=== PATIENT | female | born 1990 | race Caucasian/White ===

== ENCOUNTER 2017-10-26 13:56 | Emergency (ER) | payer OTHER ==
[~2017-10-26] VITALS: Ht 165.1 cm; Wt 95.3 kg
[2017-10-26] MEDS ORDERED: ESOM40CA PO (14:11)
[2017-10-26] MEDS ORDERED: ONDANSETRON 4 MG/2 ML VIAL ONE (14:15)
[2017-10-26] MEDS ORDERED: KETOROLAC TROMETHAMINE 15 MG INJ ONE (14:15)
[2017-10-26] MEDS: ONDANSETRON 4 MG/2 ML VIAL IV ONE (14:20)
[2017-10-26] MEDS: KETOROLAC TROMETHAMINE 15 MG INJ IV ONE (14:22)
[2017-10-26 14:26] LABS: BASOPHILS # (AUTO) 0.1 K/uL (0.0-8.0); BASOPHILS % (AUTO) 0.8 % (0.0-2.0); EOSINOPHILS % (AUTO) 0.6 % (0.0-7.0); HEMOGLOBIN 13.4 g/dL (10.9-14.3); LYMPHOCYTES # (AUTO) 1.6 K/uL (20.0-40.0); LYMPHOCYTES % (AUTO) 21.9 % (20.5-51.5); MEAN CORPUSCULAR HEMOGLOBIN 29.4 uug (24.7-32.8); MEAN CORPUSCULAR HGB CONC 34 g/dL (32.3-35.6); MEAN CORPUSCULAR VOLUME 85.4 fL (75.5-95.3); MONOCYTES # (AUTO) 0.5 K/uL (2.0-10.0); MONOCYTES % (AUTO) 6.9 % (0.0-11.0); NEUTROPHILS % (AUTO) 69.8 % (38.5-71.5); PLATELET COUNT (AUTO) 192 K/uL (179-408); RED BLOOD CELL COUNT(AUTO) 4.56 MIL/uL (3.63-4.92); WHITE BLOOD COUNT (AUTO) 7.1 K/uL (3.8-11.8)
[2017-10-26 14:39] LABS: CREATININE 0.7 mg/dL (0.6-1.3); POTASSIUM 3.3 mmol/L (3.5-5.1)
[2017-10-26 14:48] LABS: *BLOOD, URINE NEGATIVE (NEGATIVE); *KETONES,URINE 3+ (NEGATIVE); *PROTEIN,URINE 2+ (NEGATIVE); LEUKOCYTE ESTERASE ,URINE NEGATIVE (NEGATIVE); NITRITE, URINE NEGATIVE (NEGATIVE); UGLUCOSE NEGATIVE (NEGATIVE)
[2017-10-26 14:50] LABS: BILIRUBIN,DIRECT 0.3 mg/dL (0.0-0.2); BILIRUBIN,TOTAL 0.9 mg/dL (0.2-1.0); TOTAL PROTEIN, SERUM 7.1 g/dL (6.4-8.2)
[2017-10-26 14:56] LABS: *URINE HCG, QUAL NEGATIVE (NEGATIVE)
[2017-10-26 15:03] LABS: *CLARITY,URINE HAZY (CLEAR); *COLOR,URINE BROWN (YELLOW)
[2017-10-26 15:04] LABS: *BILIRUBIN,URIN 2+ (NEGATIVE)
[2017-10-26 15:07] LABS: BACTERIA,URINE MANY /HPF (NONE SEEN); RBC,URINE 0-3 /HPF (0-3); SQUAMOUS EPITHELIAL CELL,UR MODERATE /HPF (NONE SEEN)
[2017-10-26 15:08] LABS: MUCUS,URINE MANY /LPF (0-FEW)
--- NOTE | 2017-10-26 15:30 | NUR ---
IV removed. Catheter intact and site benign. Pressure and 4x4 gauze applied to site. No bleeding noted. Patient discharged to home in stable conditon & steadt gait. Written & verbal after care instructions and copies of all the tests' results given. Patient verbalizes understanding of instructions.
== END 2017-10-26 15:32 | disposition home or self-care (01) ==
LOC: ER 13:56
DX: K80.20 Calculus of gallbladder without cholecystitis without obstruction (principal); Z79.899 Other long term (current) drug therapy
CPT/HCPCS: 36415; 83690; 84703; 85025; A4663; J1885; J2405; J7030

== ENCOUNTER 2024-05-30 13:55 | Emergency (ER) | payer MEDICAID, OTHER ==
[~2024-05-30] VITALS: Ht 162.6 cm; Wt 57.2 kg
[~2024-05-30 13:55] MED LIST: ESOM40CA PO
[2024-05-30] MEDS ORDERED: HYDROMORPHONE 1 MG/1 ML DISP.SYRIN ONE (15:01)
[2024-05-30] MEDS ORDERED: ONDANSETRON 4 MG/2 ML VIAL ONE (15:01)
[2024-05-30] MEDS: ONDANSETRON 4 MG/2 ML VIAL IV ONE (15:15)
[2024-05-30] MEDS: IV NORMAL SALINE 1000 ML BAG IV ONE (15:15)
[2024-05-30] MEDS: HYDROMORPHONE 1 MG/1 ML DISP.SYRIN IV ONE (15:15)
[2024-05-30 15:16] LABS: BASOPHILS % (AUTO) 0.7 % (0.0-2.0); EOSINOPHILS # (AUTO) 0.1 K/uL (0.0-0.7); HEMATOCRIT 24.7 % (31.2-41.9); LYMPHOCYTES # (AUTO) 0.2 K/uL (0.8-4.8); MEAN CORPUSCULAR HEMOGLOBIN 18.2 uug (24.7-32.8); MEAN CORPUSCULAR HGB CONC 30 g/dL (32.3-35.6); MEAN CORPUSCULAR VOLUME 61.1 fL (75.5-95.3); MONOCYTES # (AUTO) 0.3 K/uL (0.1-1.30); MONOCYTES % (AUTO) 5.7 % (0.0-11.0); NEUTROPHILS # (AUTO) 4.7 K/uL (1.8-8.9); NEUTROPHILS % (AUTO) 87.6 % (38.5-71.5); PLATELET COUNT (AUTO) 280 K/uL (179-408); RED BLOOD CELL COUNT(AUTO) 4.04 MIL/uL (3.63-4.92); RED CELL DISTRIBUTION WIDTH 20.8 % (12.3-17.7); WHITE BLOOD COUNT (AUTO) 5.4 K/uL (3.8-11.8)
[2024-05-30 15:29] LABS: HEMOGLOBIN 7.4 g/dL (10.9-14.3)
[2024-05-30 15:32] LABS: ALANINE AMINOTRANSFERASE 9 U/L (14-59); ALBUMIN 3.1 g/dL (3.4-5.0); ALKALINE PHOSPHATASE 44 U/L (50-136); ASPARTATE AMINOTRANSFERASE < 5 U/L (15-37); BILIRUBIN,DIRECT 0.2 mg/dL (0.0-0.2); BILIRUBIN,TOTAL 0.5 mg/dL (0.2-1.0); CALCIUM 8.2 mg/dL (8.5-10.1); CARBON DIOXIDE 26 mmol/L (21-32); CHLORIDE 105 mmol/L (98-107); CREATININE 0.5 mg/dL (0.6-1.3); GLUCOSE 100 mg/dL (74-106); POTASSIUM 4.2 mmol/L (3.5-5.1); SODIUM SERUM 138 mmol/L (136-145); TOTAL PROTEIN, SERUM 6.5 g/dL (6.4-8.2); UREA NITROGEN, BLOOD 11 mg/dL (7-18)
[2024-05-30 16:37] LABS: IRON, SERUM 13 ug/dL (50-175)
[2024-05-30 16:50] LABS: *BILIRUBIN,URIN NEGATIVE (NEGATIVE); *BLOOD, URINE NEGATIVE (NEGATIVE); *CLARITY,URINE CLEAR (CLEAR); *COLOR,URINE YELLOW (YELLOW); *KETONES,URINE NEGATIVE (NEGATIVE); *PROTEIN,URINE NEGATIVE (NEGATIVE); *UROBILINOGEN,URINE 0.2 E.U./dl (NORMAL); LEUKOCYTE ESTERASE ,URINE NEGATIVE (NEGATIVE); NITRITE, URINE NEGATIVE (NEGATIVE); PH,URINE 8.5 (5.0-8.0); UGLUCOSE NEGATIVE (NEGATIVE)
[2024-05-30 16:53] LABS: *URINE HCG, QUAL NEGATIVE (NEGATIVE)
[2024-05-30] MEDS ORDERED: CYANOCOBALAMIN 1000 MCG/ML VIAL ONE (18:24)
[2024-05-30] MEDS: CYANOCOBALAMIN 1000 MCG/ML VIAL IM ONE (18:35)
[2024-05-30] MEDS ORDERED: ACET1TAB23 PO (18:37)
[2024-05-30] MEDS ORDERED: ONDA4TAB5 PO (18:37)
[2024-05-30 18:47] VITALS: BP 106/52; TEMP 207.7; O2SAT 100
== END 2024-05-30 18:48 | disposition home or self-care (01) ==
LOC: ER 13:55
DX: A08.4 Viral intestinal infection, unspecified (principal); D50.9 Iron deficiency anemia, unspecified; E46 Unspecified protein-calorie malnutrition; R10.2 Pelvic and perineal pain; F17.200 Nicotine dependence, unspecified, uncomplicated; E53.8 Deficiency of other specified B group vitamins; Z79.899 Other long term (current) drug therapy; Z68.21 Body mass index [BMI] 21.0-21.9, adult; Z20.822 Contact with and (suspected) exposure to COVID-19
CPT/HCPCS: 36415; 83550; 83605; 83735; 84703; 85025; A4606; A4663; J1171; J2405; J3420; J7040